=== PATIENT | male | born 1975 | race Caucasian/White ===

== ENCOUNTER 2018-07-13 10:39 | Emergency (ER) | payer BC, OTHER ==
[2018-07-13 10:55] VITALS: TEMP 98.4
--- NOTE | 2018-07-13 11:37 | XR ---
EXAMINATION TYPE: XR Hip LT and AP Pelvis , 3 VIEWS DATE OF EXAM ORDERED: 07/13/2018 HISTORY: Pain. COMPARISON: None. FINDINGS: There has been a previous reconstruction of the left hemipelvis. There are asymmetric dege nerative changes in the left hip. No acute fracture or dislocation is seen. There are remodeling astorga ges in the left hip. IMPRESSION: 1. NO ACUTE OSSEOUS LESION. 2. POSTSURGICAL CHANGE. 3. MODERATELY SEVERE DEGENERATIVE CHANGE.
--- NOTE | 2018-07-13 11:39 | XR ---
EXAMINATION TYPE: XR foot complete RT , 3 VIEWS DATE OF EXAM ORDERED: 07/13/2018 HISTORY: Right second toe pain. COMPARISON: None. FINDINGS: There are mild degenerative changes in the right first MTP joint. There is a tiny calcanea l spur. No fracture or other acute osseous lesion is seen. IMPRESSION: 1. NO ACUTE OSSEOUS LESION. 2. MILD DEGENERATIVE CHANGE.
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
[2018-07-13 12:34] VITALS: BP 131/70; PULSE 79; RESP 18
== END 2018-07-13 12:34 | disposition home or self-care (01) ==
LOC: SUPCPDRO 10:39 → EC 10:39
DX: S70.02XA Contusion of left hip, initial encounter (principal); S70.12XA Contusion of left thigh, initial encounter; S90.31XA Contusion of right foot, initial encounter; S90.121A Contusion of right lesser toe(s) without damage to nail, initial encounter; F17.200 Nicotine dependence, unspecified, uncomplicated; V87.8XXA Person injured in other specified noncollision transport accidents involving motor vehicle (traffic), initial encounter; Y93.55 Activity, bike riding; Y92.009 Unspecified place in unspecified non-institutional (private) residence as the place of occurrence of the external cause
CPT/HCPCS: 73502; 99283